=== PATIENT | female | born 1995 | race Caucasian/White ===

== ENCOUNTER → 2023-04-09 10:41 | Outpatient (CLI) | payer MEDICAID, SELFPAY ==
[2023-04-10 08:09] LABS: Progesterone 8.3 ng/mL (.)
== END ==
PROVIDERS: Visit Provider Obstetrics & Gynecology
DX: N92.6 Irregular menstruation, unspecified (principal); Z32.00 Encounter for pregnancy test, result unknown
CPT/HCPCS: 36415; 84144; 84702

== ENCOUNTER → 2023-05-01 14:57 | Outpatient (CLI) | payer MEDICAID, SELFPAY ==
[2023-05-01 15:31] LABS: Basophils % 0.2 % (0.1-2.0); Eosinophils # 0.2 K/mm3 (0.0-0.4); Eosinophils % 1.6 % (0.1-12.0); Hematocrit 41.3 % (37.0-47.0); Hemoglobin 13.7 g/dL (12.2-16.2); Lymphocytes # 3.3 K/mm3 (0.7-4.5); Lymphocytes % 28.1 % (10-50); Mean Corpuscular HGB Conc 33.3 g/dL (31.8-35.4); Mean Corpuscular Volume 84.3 fl (81-99); Mean Platelet Volume 7.3 fl (7.4-10.4); Monocytes # 0.5 K/mm3 (0.1-1.0); Neutrophils # 7.9 K/mm3 (1.8-7.8); Platelet Count 313 K/mm3 (142-424); Red Blood Count 4.91 M/mm3 (4.20-5.40); Red Cell Distribution Width 14.2 % (11.5-17.5); White Blood Count 11.9 K/mm3 (4.8-10.8)
[2023-05-03 10:51] LABS: HIV Screen 4th Generation wRfx Non Reactive (Non Reactive); Rapid Plasma Reagin Ab Titer Non Reactive (NonRea<1:1)
[2023-05-06 11:14] LABS: Hepatitis B Surface Antigen Negative; Hepatitis C Antibody Non Reactive
[2023-05-06 11:15] LABS: Rubella Antibodies, IgG <0.90
== END ==
PROVIDERS: Visit Provider Obstetrics & Gynecology
DX: Z34.91 Encounter for supervision of normal pregnancy, unspecified, first trimester (principal); Z3A.10 10 weeks gestation of pregnancy
CPT/HCPCS: 36415; 85025; 86593; 86703; 86762; 86850; 87086; 87088; 87186; 87340; 87380; G0432

== ENCOUNTER → 2023-05-07 08:45 | Outpatient (CLI) | payer MEDICAID, SELFPAY ==
--- NOTE | 2023-05-07 08:46 | US_ITS ---
PROCEDURE: US OB <= 14 WEEKS FETUS CLINICAL INDICATION: for dates COMPARISON: No exams were available for comparison FINDINGS: Transvaginal and transabdominal sonographic images of the pelvis were obtained. Her last menstrual period is unknown. An intrauterine gestational sac is present with a pole with a crown-rump length of 4.53cm correlating to gestational age of 11weeks 3days. heart tones are present with an FHR of 167bpm. Yolk sac is noted. The yolk sac measures 7.4mm. The right ovary is seen and appears normal. It measures 1.5 cm x 2.6 cm x 1.6 cm. The left ovary is seen and appears normal. It measures 1.8 cm x 2.7 cm x 1.9 cm. There is a corpus luteum within the ovary. There is no fluid in the cul-de-sac. IMPRESSION: 1. Within the uterine cavity there is a viable fetus measuring 11 weeks and 3 days. 2. Her due date will be November 23, 2023. 3. Both ovaries are seen and appear normal. There is a small corpus luteum on the left ovary. Dictated by: Kiran Crook MD 05/07/2023 14:07 Kiran Crook MD in OV 05/07/2023 14:07
== END | disposition home or self-care (01) ==
PROVIDERS: Visit Provider Obstetrics & Gynecology
DX: Z34.91 Encounter for supervision of normal pregnancy, unspecified, first trimester (principal); Z3A.11 11 weeks gestation of pregnancy
CPT/HCPCS: 76801

== ENCOUNTER 2023-05-11 13:46 | Observation (INO) | payer MEDICAID, SELFPAY ==
[2023-05-11 14:04] VITALS: BMI 41.8
[2023-05-11 14:10] VITALS: BP 113/57; PULSE 61; RESP 18; TEMP 37.1
[2023-05-11 14:45] VITALS: BMI 41.8
[2023-05-11 15:06] LABS: Microscopic, Urine URINE MICROSCOPIC (MICROSCOPIC)
[2023-05-11 16:33] LABS: Appearance,Urine Clear (Clear); Color,Urine Yellow (Yellow); Protein,Urine Negative (Negative)
[2023-05-11 16:34] LABS: Bacteria,Urine Trace /lpf; Bilirubin,Urine Negative (Negative); Blood, Urine Trace (Negative); Glucose,Urine (UA) Negative (Negative); Ketones,Urine Negative (Negative); Leukocyte Esterase,Urine Trace (Negative); Nitrate,Urine Negative (Negative); RBC,Urine Occasional #/hpf (0-3); Squamous Epithelial Cell,Urine Occasional #/hpf (0-5); WBC,Urine Occasional #/hpf (0-3)
[2023-05-11 16:43] LABS: Amphetamine/Metha Screen,Urine Negative ng/ml (<1000)
[2023-05-11 16:45] LABS: Barbiturates Screen,Urine Negative ng/ml (<200)
[2023-05-11 16:46] LABS: Benzodiazepines Screen,Urine Negative ng/ml (<200); Cannabinoid Screen,Urine Positive ng/ml (<50)
[2023-05-11 16:47] LABS: Cocaine Screen,Urine Negative ng/ml (<300); Methadone Screen,Urine Negative ng/ml (<300)
[2023-05-11 16:48] LABS: Opiate Screen,Urine Positive ng/ml (<300)
[2023-05-11 16:49] LABS: Phencyclidine Screen,Urine Negative ng/ml (<25)
--- NOTE | 2023-05-11 19:24 | PC.NURSE ---
Report given to NINO Irvin (float nurse).
--- NOTE | 2023-05-11 19:48 | EXP.OB.APHP ---
OB - H&P: HPI Antepartum History of Present Illness Chief complaint: back pain History of present illness: Amada Brizuela is a 27-year-old G3, P2 who presented to an outside facility with back pain. She was found to have pyelonephritis and I was called to accept transfer. Patient is 12 weeks and 1 day gestation based on an RACHEL of November 23, 2023. RACHEL was established with 10-week ultrasound. At her new OB appointment on 05/01/2023 she was noted to have a urinary tract infection and Macrobid was called in. Culture and sensitivity grew out greater than 100,000 colony-forming units of E. coli that was sensitive to Macrobid. On arrival to outside facility she received 1 dose of Rocephin, earlier UTI cultures indicated Rocephin sensitive. On arrival patient had persistent left-sided abdominal pain with nausea vomiting and diarrhea for about 12 hours review of labs from outside facility noted an appreciable leukocytosis. Labs are also positive for hematuria and proteinuria. Patient denies any contractions or leakage of fluid. She denies any vaginal bleeding. Patient denies any fevers or chills. No known drug allergies O+/antibody negative, RPR NR, HPV negative, HCV negative, HIV negative, rubella nonimmune OB history: Denies any complications with her pregnancies. G1: 2019. Elective . G2: 2020. Repeat scheduled . History of Present Criteria for establishing EDC:: LMP confirmed by 1st trimester US care: good care Ultrasounds: normal 1st trimester US Labs Blood type: O (+) positive Rubella: nonimmune RPR/VDRL: nonreactive GBS status: unknown HBsAG: negative [facility] Disclaimer: The information contained in this section may have been updated after the patient was seen, as this information can be updated by other users. Surgical History History of section Family History Mother Cancer Grandmother Cancer Social History (Updated 05/11/23 @ 14:29 by Ayleen Owusu RN) Smoking Status: Current every day smoker tobacco type: cigarettes years smoked: 15 alcohol intake: former substance use type: denies use and marijuana current occupational status: unemployed Travel in the last 8 weeks: None Meds Home Medications and Allergies Home Medications Medication Instructions Recorded Confirmed Type doxylamine succinate 25 mg tablet 25 mg PO HS PRN nausea #60 tabs 05/01/23 05/11/23 Rx (Unisom (doxylamine)) omeprazole 20 mg capsule,delayed 20 mg PO DAILY Acid Reflux 05/01/23 05/11/23 History release pyridoxine (vitamin B6) 25 mg 25 mg PO BID nausea and vomiting 05/01/23 05/11/23 Rx tablet #120 tabs progesterone micronized 200 mg 200 mg vaginal HS 05/11/23 05/11/23 History capsule (Prometrium) New Prescriptions to Start Prescriptions: Allergies Allergy/AdvReac Type Severity Reaction Status Date / Time No Known Allergies Allergy Verified 05/01/23 13:49 OB - H&P: Exam Physical Exam Vital signs: Temp Pulse Resp BP 98.7 F 61 18 113/57 L 05/11/23 14:10 05/11/23 14:10 05/11/23 14:10 05/11/23 14:10 Narrative: General: patient is alert oriented in no acute distress and responds appropriately to questions. Appears to be in minimal pain. resting in bed and doing well HEENT: NCAT, EOMI, moist mucous membranes, neck supple with full ROM Cardiovascular: RRR +S1/S2, no murmurs or rubs Pulmonary: Clear to auscultation bilaterally, nonlabored breathing, symmetric chest rise Abdominal: Fundus appropriate for gestation. non tender Back: positive bilateral CVAT Extremities: no edema, no tenderness or cyanosis noted Skin: Normal turgor, intact, warm.? Negative for erythema, pallor, petechia, or lesions Neurologic: Negative for sensory or motor deficit Psychiatric: Normal affect, normal thought process, good judgme
[2023-05-11 20:00] VITALS: BP 113/66; PULSE 58; RESP 18; TEMP 37; O2SAT 98
[2023-05-12 04:00] VITALS: BP 123/72; PULSE 78; RESP 16; TEMP 37; O2SAT 98
--- NOTE | 2023-05-12 07:29 | INFXCTL.NOTE ---
Report received from NINO Irvin (float nurse)
[2023-05-12 08:39] LABS: Basophils # 0.1 K/mm3 (0-0.2); Basophils % 0.5 % (0.1-2.0); Eosinophils # 0.2 K/mm3 (0.0-0.4); Eosinophils % 1.5 % (0.1-12.0); Hematocrit 38.6 % (37.0-47.0); Hemoglobin 12.7 g/dL (12.2-16.2); Lymphocytes # 3.5 K/mm3 (0.7-4.5); Lymphocytes % 33.5 % (10-50); Mean Corpuscular HGB Conc 32.9 g/dL (31.8-35.4); Mean Corpuscular Volume 85.3 fl (81-99); Monocytes # 0.5 K/mm3 (0.1-1.0); Monocytes % 4.5 % (1.7-9.3); Neutrophils # 6.2 K/mm3 (1.8-7.8); Platelet Count 298 K/mm3 (142-424); Red Blood Count 4.52 M/mm3 (4.20-5.40); Red Cell Distribution Width 14.1 % (11.5-17.5); White Blood Count 10.4 K/mm3 (4.8-10.8)
[2023-05-12 09:00] VITALS: BP 131/75; PULSE 77; RESP 18; TEMP 37.2
--- NOTE | 2023-05-12 14:33 | PC.NURSE ---
Sleeping soundly at this time.
[2023-05-12 16:30] VITALS: BP 121/73; PULSE 58; RESP 17; TEMP 36.9; O2SAT 100
--- NOTE | 2023-05-12 16:47 | EXP.DC.SUM ---
General Admission date:: 05/11/23 HPI HPI HPI: Amada Brizuela is a 27-year-old G3, P2 who presented to an outside facility with back pain. She was found to have pyelonephritis and I was called to accept transfer. Patient is 12 weeks and 1 day gestation based on an RACHEL of November 23, 2023. RACHEL was established with 10-week ultrasound. At her new OB appointment on 05/01/2023 she was noted to have a urinary tract infection and Macrobid was called in. Culture and sensitivity grew out greater than 100,000 colony-forming units of E. coli that was sensitive to Macrobid. On arrival to outside facility she received 1 dose of Rocephin, earlier UTI cultures indicated Rocephin sensitive. On arrival patient had persistent left-sided abdominal pain with nausea vomiting and diarrhea for about 12 hours review of labs from outside facility noted an appreciable leukocytosis. Labs are also positive for hematuria and proteinuria. Patient denies any contractions or leakage of fluid. She denies any vaginal bleeding. Patient denies any fevers or chills. No known drug allergies O+/antibody negative, RPR NR, HPV negative, HCV negative, HIV negative, rubella nonimmune OB history: Denies any complications with her pregnancies. G1: 2018. Elective . G2: 2020. Repeat scheduled . Hospital Course Hospital Course Hospital Course: Amada is a at 11 weeks gestation that was admitted from outside facility for pyelonephritis. She was being treated for a symptomatic UTI with Macrobid following her initial OB appt. Pt reports it progressed over the course of 12 hours and she presented to the ED. She received two doses of Rocephin and felt significantly better. She was requesting DC home last night but was kept for observation and her second course of Rocephin. She had a leukocytosis at outside facility that has resolved at time of DC. All questions were addressed. Pt will DC on Cephlexin BID x7days and then start on daily suppression for the remainder of . Exam Data for Last 24 hours Vital signs and Labs for Last 24 Hours: Temp Pulse Resp BP Pulse Ox O2 Del Method 98.9 F 77 18 131/75 98 Room Air 05/12/23 09:00 05/12/23 09:00 05/12/23 09:00 05/12/23 09:00 05/12/23 04:00 05/12/23 04:00 Laboratory Results - last 24 hr 05/11/23 14:00: Urine Opiates Screen Positive H, Urine Methadone Screen Negative, Ur Barbituates Screen Negative, Ur Phencyclidine Scrn Negative, Ur Amphetamines Screen Negative, U Benzodiazepines Scrn Negative, Urine Cocaine Screen Negative, U Marijuana (THC) Screen Positive H 05/12/23 08:18: WBC 10.4, RBC 4.52, Hgb 12.7, Hct 38.6, MCV 85.3, MCH 28.0, MCHC 32.9, RDW 14.1, Plt Count 298, MPV 7.0 L, Neut % (Auto) 60.0, Lymph % (Auto) 33.5, [place] % (Auto) 4.5, Eos % (Auto) 1.5, Baso % (Auto) 0.5, Neut # (Auto) 6.2, Lymph # (Auto) 3.5, [place] # (Auto) 0.5, Eos # (Auto) 0.2, Baso # (Auto) 0.1 I & O for Last 24 hours: Intake & Output 05/09/23 05/10/23 05/11/23 05/12/23 23:59 23:59 23:59 23:59 Weight 214 lb Constitutional Constitutional: no acute distress *Routine HEENT Exam Head: Present normocephalic Eye: Present EOMI and PERRL ENT: Present mucous membranes moist *Routine Neck Exam Neck: Present supple; Absent lymphadenopathy *Routine Respiratory Exam Respiratory: Present CTA bilaterally *Routine Cardiovascular Exam Cardiovascular: Present RRR *Routine Abdominal Exam Abdominal: Present soft and normoactive bowel sounds; Absent tenderness *Routine Exam Comments: suprapubic pain/ pelvic pain resolved since admission *Routine Extremities Exam Extremities: Absent cyanosis, clubbing or edema Routine Back/Spine/Pelvis Exam Back/Spine: Absent CVA tenderness (resolved since admission ) *Routine Skin Exam Skin: Present warm; Absent rash *Routine Neurological Exam Neurological: Present alert and oriented X3 Results Data Completed and Pending Labs on day of discharge: Labs from last 24 hours
== END 2023-05-12 18:30 | disposition home or self-care (01) ==
PROVIDERS: Admitting Provider Obstetrics & Gynecology; Visit Provider Obstetrics & Gynecology
DX: O23.01 Infections of kidney in pregnancy, first trimester (principal); B96.20 Unspecified Escherichia coli [E. coli] as the cause of diseases classified elsewhere; Z3A.12 12 weeks gestation of pregnancy; O99.331 Smoking (tobacco) complicating pregnancy, first trimester; F17.210 Nicotine dependence, cigarettes, uncomplicated; O26.891 Other specified pregnancy related conditions, first trimester; K21.9 Gastro-esophageal reflux disease without esophagitis
CPT/HCPCS: 36415; 80305; 81001; 85025; 87040; 87086; G0378; J0696

== ENCOUNTER → 2023-05-30 23:17 | Outpatient (CLI) | payer MEDICAID, SELFPAY | LOC: LAB.DROPOF 23:17 | PROVIDERS: PCP Obstetrics & Gynecology; Visit Provider Obstetrics & Gynecology | DX: N12 Tubulo-interstitial nephritis, not specified as acute or chronic (principal); B96.29 Other Escherichia coli [E. coli] as the cause of diseases classified elsewhere | CPT/HCPCS: 87086; 87088; 87186 ==

== ENCOUNTER 2023-06-19 23:40 | Observation (INO) | payer MEDICAID, SELFPAY ==
[2023-06-19 23:43] VITALS: BP 141/83; PULSE 113; RESP 16; TEMP 36.8; O2SAT 96; BMI 42.0
[2023-06-20] VITALS (7 sets, daily range): BP systolic 101–136; BP diastolic 55–76; PULSE 71–108; RESP 16–18; TEMP 36.7–37.1; O2SAT 95–99; BMI 42.0
[2023-06-20 00:07] LABS: Coronavirus 19, PCR Not Detected (NotDetected); Influenza A, PCR Not Detected (NotDetected); Influenza B, PCR Not Detected (NotDetected); Microscopic, Urine URINE MICROSCOPIC (MICROSCOPIC)
[2023-06-20 00:16] LABS: Appearance,Urine CLEAR (Clear); Blood, Urine TRACE-I (Negative); Color,Urine YELLOW (Yellow); Glucose,Urine (UA) Negative (Negative); Ketones,Urine Negative (Negative); Leukocyte Esterase,Urine 1+ (Negative); Nitrate,Urine Negative (Negative); Protein,Urine 1+ (Negative); Specific Gravity, Urine 1.015 (1.005-1.030)
[2023-06-20 00:18] LABS: Bilirubin,Urine Negative (Negative)
[2023-06-20 00:33] LABS: Basophils % 0.3 % (0.1-2.0); Eosinophils # 0.2 K/mm3 (0.0-0.4); Eosinophils % 1.6 % (0.1-12.0); Hematocrit 29.8 % (37.0-47.0); Hemoglobin 10.5 g/dL (12.2-16.2); Lymphocytes # 2.2 K/mm3 (0.7-4.5); Lymphocytes % 23.3 % (10-50); Mean Corpuscular HGB Conc 35.4 g/dL (31.8-35.4); Mean Corpuscular Hemoglobin 29.4 pg (27.0-31.2); Mean Corpuscular Volume 82.9 fl (81-99); Mean Platelet Volume 7.6 fl (7.4-10.4); Monocytes # 0.5 K/mm3 (0.1-1.0); Monocytes % 5.4 % (1.7-9.3); Neutrophils # 6.4 K/mm3 (1.8-7.8); Neutrophils % 69.5 % (37.0-80.0); Platelet Count 393 K/mm3 (142-424); Red Blood Count 3.59 M/mm3 (4.20-5.40); Red Cell Distribution Width 13.9 % (11.5-17.5); White Blood Count 9.2 K/mm3 (4.8-10.8)
[2023-06-20 00:34] LABS: HCG Qualitative, Serum Positive (Negative); Lactic Acid 1.5 mmol/L (0.7-2.1)
[2023-06-20 00:35] LABS: Alanine Aminotransferase 20 U/L (12-78); Albumin Level 2.9 g/dl (3.5-5.0); Albumin/Globulin Ratio 0.7 (1.1-1.8); Alkaline Phosphatase 310 U/L (38-126); Anion Gap 13.9 mEq/L (5-15); Aspartate Amino Transferase 21 U/L (14-36); Bilirubin,Total 0.8 mg/dl (0.2-1.3); Blood Urea Nitrogen 8 mg/dl (7-17); Calcium 8.6 mg/dl (8.4-10.2); Carbon Dioxide 21 mmol/L (22.0-30.0); Chloride 104 mmol/L (98-107); Creatinine Clearance Estimated 77 mL/min (50-200); Estimated Glomerular Filt Rate 87 ml/min (>60); GFR (African American) 106 ML/MIN (>60); Globulin 3.9 g/dL (1.3-3.2); Glucose 101 mg/dl (74-100); Magnesium 1.6 mg/dl (1.6-2.3); Sodium 136 mmol/L (136-145); Total Protein,Serum 6.8 g/dl (6.3-8.2)
[2023-06-20 00:42] LABS: Bacteria,Urine 1+ /lpf; WBC,Urine 20-50 #/hpf (0-3)
[2023-06-20 00:44] LABS: Potassium 2.9 mmoL/L (3.5-5.1)
--- NOTE | 2023-06-20 00:44 | PC.NURSE ---
reported critical potassium of 2.[address] Larsen
--- NOTE | 2023-06-20 01:11 | HMH.EDGENADL ---
Discharge Plan Disposition Patient Disposition: Admitted Clinical Impressions Clinical Impression: Bacteremia, Pyelonephritis, 17 weeks gestation of , Acute hypokalemia Sepsis Qualifiers: Sepsis type: sepsis due to unspecified organism Sepsis acute organ dysfunction status: without acute organ dysfunction Qualified Code(s): A41.9 - Sepsis, unspecified organism Discharge ED Provider: Truong Larsen General Adult HPI General Chief complaint: Fever Stated complaint: vomiting,body aches,runny nose,sweats,chills Time Seen by Provider: 06/19/23 23:45 Mode of Arrival: Ambulatory Source of Information: Patient Limitations: No Limitations Description of Symptoms (Recalled from ER Triage Doc. by RN): Body aches, fever, SOA History of Present Illness HPI narrative: 27-year-old female, 17 weeks , history of obesity, PCOS, history of pyelonephritis last month presents with multiple complaints. She reports that starting or Sunday of last week she began having generalized body aches and fevers, reportedly felt terrible. She was seen at another hospital on Sunday, [facility], where she had blood work and urine studies done. She brought her results with her, they are very concerning for pyelonephritis. She was given a dose of tract stone and elected to leave AMA. She presents approximately 48 hours later. She reports her last fever was yesterday morning and she is no longer symptomatic. Specifically denies any back pain or abdominal pain. Related Data Home Medications Medication Instructions Recorded Confirmed omeprazole 20 mg capsule,delayed 20 mg PO DAILY Acid Reflux 05/01/23 06/19/23 release aspirin 81 mg capsule 81 mg PO DAILY 06/19/23 06/19/23 Allergies Allergy/AdvReac Type Severity Reaction Status Date / Time No Known Allergies Allergy Verified 05/30/23 10:20 [facility] Disclaimer: The information contained in this section may have been updated after the patient was seen, as this information can be updated by other users. Medical History Irregular bleeding PCOS (polycystic ovarian syndrome) Surgical History History of section Family History Mother Cancer breast, bone, brain Grandmother Cancer brain Social History Smoking Status: Current every day smoker tobacco type: cigarettes years smoked: 15 alcohol intake: former substance use type: denies use and marijuana current occupational status: unemployed Travel in the last 8 weeks: None ROS Obtained: Yes All systems reviewed & no additional complaints except as documented Physical Exam General General appearance: alert, in no apparent distress and obese Head Head exam: atraumatic and normocephalic Eye Eye exam: Present normal appearance, PERRL and EOMI ENT ENT exam: Present normal oropharynx and normal external ear exam Neck Neck exam: Present normal inspection and full ROM Chest Chest inspection: Present normal inspection and symmetric chest wall rise; Absent tenderness Respiratory Respiratory exam: Present normal lung sounds bilaterally; Absent respiratory distress Cardiovascular Cardiovascular exam: Present regular rate and normal rhythm Abdominal Exam Abdominal exam: Present soft; Absent distention, tenderness or guarding Extremities Exam Extremities exam: Present normal inspection; Absent edema or joint swelling Back Exam Back exam: Present normal inspection; Absent tenderness Neurological Exam Neurological exam: Present alert and oriented X3; Absent motor sensory deficit Psychiatric Psychiatric exam: Present normal affect and normal mood Skin Skin exam: Present warm, dry and normal color Lymphatic Lymphatic Findings: no adenopathy Medical Decision Making
--- NOTE | 2023-06-20 01:36 | PC.NURSE ---
report called to NATALYA Kowalski RN
--- NOTE | 2023-06-20 02:05 | EXP.HP ---
History of Present Illness *Admission Date: 06/20/23 *Reason for visit:: Pyelonephritis and bactermia *History of present illness: Amada Brizuela is a 27-year-old G3, P2 at 17w5d gestation who presented to the ED with a UTI . She was evaluated at an outside facility and per pt diagnosed with a UTI, given antibiotics and then signed out AMA with plans to come to [facility] for OB care. On arrival the patient was afebrile and denies back pain. Pt stated yesterday the back pain was more significant on the left and her fever was persistent. She is having some SOA and endorses nausea and vomitting for several days, most recent emesis today prior to ED arrival. This is her second admission for pyelonephritis. Review of labs from OSH displayed a leukocytosis and a bacteremia, sensitive to Rocephin. Patient denies any contractions or leakage of fluid. She denies any vaginal bleeding. No known drug allergies O+/antibody negative, RPR NR, HPV negative, HCV negative, HIV negative, rubella nonimmune [facility] Disclaimer: The information contained in this section may have been updated after the patient was seen, as this information can be updated by other users. Medical History Irregular bleeding PCOS (polycystic ovarian syndrome) Surgical History History of section Family History Mother Cancer breast, bone, brain Grandmother Cancer brain Social History Smoking Status: Current every day smoker tobacco type: cigarettes years smoked: 15 alcohol intake: former substance use type: denies use and marijuana current occupational status: unemployed Travel in the last 8 weeks: None Review of Systems Review of Systems Review of systems (narrative): Review of Systems Constitutional: endorses fever, chills, and sweats Eyes: Denies vision change/ pain Respiratory: endorses cough and shortness of breath Cardiovascular: Denies chest pain and lightheadedness Gastrointestinal: denies abdominal pain or contractions. endorses nausea, vomiting. Genitourinary: endorses dysuria, urgency and frequency. Denies incontinence Musculoskeletal: Denies shoulder pain and reports improving back pain Neurological: Denies change in speech or headaches Meds Home Medications and Allergies Home Medications Medication Instructions Recorded Confirmed Type omeprazole 20 mg capsule,delayed 20 mg PO DAILY Acid Reflux 05/01/23 06/19/23 History release aspirin 81 mg capsule 81 mg PO DAILY 06/19/23 06/19/23 History New Prescriptions to Start Prescriptions: Allergies Allergy/AdvReac Type Severity Reaction Status Date / Time No Known Allergies Allergy Verified 05/30/23 10:20 Exam Data for Last 24 hours Vital signs and Labs for Last 24 Hours: Temp Pulse Resp BP Pulse Ox O2 Del Method 98.1 F 86 18 101/56 L 99 Room Air 06/20/23 01:42 06/20/23 01:42 06/20/23 01:42 06/20/23 01:42 06/20/23 01:23 06/20/23 01:42 Laboratory Results - last 24 hr 06/20/23 00:00: Urine Color Yellow, Urine Appearance Clear, Urine pH 7.0, Ur Specific Home 1.015, Urine Protein 1+, Urine Glucose (UA) Negative, Urine Ketones Negative, Urine Blood Trace-i, Urine Nitrate Negative, Urine Bilirubin Negative, Urine Urobilinogen 2.0, Ur Leukocyte Esterase 1+ A, Urine RBC 3-5, Urine WBC 20-50, Ur Squamous Epith Cells 10-20, Urine Bacteria 1+, SARS-CoV-2 (PCR) Not detected, Influenza A Untype (PCR) Not detected, Influenza Type B (PCR) Not detected 06/20/23 00:15: WBC 9.2, RBC 3.59 L, Hgb 10.5 L, Hct 29.8 L, MCV 82.9, MCH 29.4, MCHC 35.4, RDW 13.9, Plt Count 393, MPV 7.6, Neut % (Auto) 69.5, Lymph % (Auto) 23.3, [place] % (Auto) 5.4, Eos % (Auto) 1.6, Baso % (Auto) 0.3, Neut # (Auto) 6.4, Lymph # (Auto) 2.2, [place] # (Auto) 0.5, Eos
[2023-06-20 06:33] LABS: Basophils % 0.2 % (0.1-2.0); Eosinophils # 0.2 K/mm3 (0.0-0.4); Hemoglobin 10.5 g/dL (12.2-16.2); Lymphocytes # 2.4 K/mm3 (0.7-4.5); Lymphocytes % 29.1 % (10-50); Mean Corpuscular HGB Conc 35.1 g/dL (31.8-35.4); Mean Corpuscular Hemoglobin 29.8 pg (27.0-31.2); Mean Corpuscular Volume 84.9 fl (81-99); Mean Platelet Volume 7.5 fl (7.4-10.4); Monocytes # 0.6 K/mm3 (0.1-1.0); Monocytes % 7.1 % (1.7-9.3); Neutrophils # 5.1 K/mm3 (1.8-7.8); Neutrophils % 61.6 % (37.0-80.0); Platelet Count 358 K/mm3 (142-424); Red Blood Count 3.53 M/mm3 (4.20-5.40); Red Cell Distribution Width 14.1 % (11.5-17.5); White Blood Count 8.4 K/mm3 (4.8-10.8)
[2023-06-20 06:35] LABS: Chloride 107 mmol/L (98-107); Potassium 3.9 mmoL/L (3.5-5.1); Sodium 135 mmol/L (136-145)
[2023-06-20 06:38] LABS: Alanine Aminotransferase 14 U/L (12-78); Albumin Level 2.6 g/dl (3.5-5.0); Albumin/Globulin Ratio 0.7 (1.1-1.8); Alkaline Phosphatase 359 U/L (38-126); Anion Gap 11.9 mEq/L (5-15); Aspartate Amino Transferase 21 U/L (14-36); Bilirubin,Total 0.8 mg/dl (0.2-1.3); Blood Urea Nitrogen 8 mg/dl (7-17); Calcium 8.3 mg/dl (8.4-10.2); Carbon Dioxide 20 mmol/L (22.0-30.0); Creatinine Clearance Estimated 88 mL/min (50-200); Estimated Glomerular Filt Rate 102 ml/min (>60); GFR (African American) 123 ML/MIN (>60); Globulin 3.5 g/dL (1.3-3.2); Glucose 81 mg/dl (74-100); Total Protein,Serum 6.1 g/dl (6.3-8.2)
--- NOTE | 2023-06-20 07:18 | US_ITS ---
FINAL REPORT TECHNIQUE: Ultrasound images of the kidneys and bladder were obtained. CLINICAL HISTORY: recurrent Pyelonephritis -- pt is COMPARISON: None FINDINGS: The right kidney measures 11.4 cm in length. It is normal in echogenicity. There is no hydronephrosis. The left kidney measures 14 cm in length, significantly larger than the right kidney. This is nonspecific, but can be seen with pyelonephritis. There is no hydronephrosis. The pancreas is poorly visualized on this examination. There is increased echogenicity in the liver compatible with fatty infiltration of the liver. IMPRESSION: The left kidney is significantly larger than the right kidney, a nonspecific finding but can be seen with pyelonephritis. No evidence of hydronephrosis is seen. Fatty infiltration of the liver. Reviewed, Interpreted and Dictated by Isaak Banuelos III, MD Transcribed by Agnieszka Sims Authenticated and [facility]
[2023-06-20 07:21] LABS: Magnesium 2.1 mg/dl (1.6-2.3)
--- NOTE | 2023-06-20 07:43 | HMH.PHAINT1 ---
Pharmacy Intervention Comments: MEDICATION RECONCILIATION COMPLETED ON PATIENT USING EXTERNAL FILL HISTORY FROM PHARMACY AND LIST FROM [facility]ICE. -JOSE MIGUEL OLIVERD
--- NOTE | 2023-06-20 07:43 | P.CONPHA_ITS ---
Pharmacy Intervention Comments: MEDICATION RECONCILIATION COMPLETED ON PATIENT USING EXTERNAL FILL HISTORY FROM PHARMACY AND LIST FROM [facility] OFFICE. -JOSE MIGUEL OLIVERD
--- NOTE | 2023-06-20 09:08 | EXP.DC.SUM ---
General Admission date:: 06/20/23 Discharge date: 06/20/23 HPI HPI HPI: Amada is sitting comfortably in bed this morning. Denies pain. States she hasn't had a fever since 06/17/23. She is voiding without difficulty. States she had one episode of emesis yesterday. Tolerating regular diet. No vaginal bleeding or pelvic cramping. She has no complaints or concerns this morning. She states she feels well. Hospital Course Hospital Course Hospital Course: Amada Brizuela is a 27-year-old G3, P2 at 17w5d gestation who presented to the ED with a UTI . She was evaluated at an outside facility on 06/17 and per pt diagnosed with a UTI, given antibiotics and then signed out AMA with plans to come to [facility] for OB care. On arrival the patient was afebrile and denies back pain. Pt stated yesterday the back pain was more significant on the left and her fever was persistent. She is having some SOA and endorses nausea and vomitting for several days, most recent emesis today prior to ED arrival. This is her second admission for pyelonephritis. Review of labs from OSH displayed a leukocytosis and a bacteremia (prelimary result demonstrated gram negative figueroa), sensitive to Rocephin. Patient denies any contractions or leakage of fluid. She denies any vaginal bleeding. No known drug allergies O+/antibody negative, RPR NR, HPV negative, HCV negative, HIV negative, rubella nonimmune Upon admission, leukocytosis had resolved. WBC at 0518, 8.4. Repeat labs all within normal limits. Vital signs stable, afebrile. Final blood culture results from OSH demonstrated E. Coli, sensitivities received. She feels well this morning. No complaints or concerns. Renal ultrasound performed this morning demonstrated left kidney significantly larger than the right kidney, a nonspecific finding but can be seen with pyelonephritis. No evidence of hydronephrosis is seen. Fatty infiltration of the liver. She was discharged home with Augmentin PO x 10 days. Encouraged increased water intake. Instructed patient to follow-up with Dr. Shipley early next week. Exam Data for Last 24 hours Vital signs and Labs for Last 24 Hours: Temp Pulse Resp BP Pulse Ox O2 Del Method 98.7 F 83 17 107/62 L 97 Room Air 06/20/23 02:45 06/20/23 02:45 06/20/23 02:45 06/20/23 02:45 06/20/23 02:45 06/20/23 02:45 Laboratory Results - last 24 hr 06/20/23 00:00: Urine Color Yellow, Urine Appearance Clear, Urine pH 7.0, Ur Specific [place] 1.015, Urine Protein 1+, Urine Glucose (UA) Negative, Urine Ketones Negative, Urine Blood Trace-i, Urine Nitrate Negative, Urine Bilirubin Negative, Urine Urobilinogen 2.0, Ur Leukocyte Esterase 1+ A, Urine RBC 3-5, Urine WBC 20-50, Ur Squamous Epith Cells 10-20, Urine Bacteria 1+, SARS-CoV-2 (PCR) Not detected, Influenza A Untype (PCR) Not detected, Influenza Type B (PCR) Not detected 06/20/23 00:15: WBC 9.2, RBC 3.59 L, Hgb 10.5 L, Hct 29.8 L, MCV 82.9, MCH 29.4, MCHC 35.4, RDW 13.9, Plt Count 393, MPV 7.6, Neut % (Auto) 69.5, Lymph % (Auto) 23.3, [place] % (Auto) 5.4, Eos % (Auto) 1.6, Baso % (Auto) 0.3, Neut # (Auto) 6.4, Lymph # (Auto) 2.2, [place] # (Auto) 0.5, Eos # (Auto) 0.2, Baso # (Auto) 0.0, Sodium 136, Potassium 2.9 L*, Chloride 104, Carbon Dioxide 21 L, Anion Gap 13.9, BUN 8, Creatinine 0.80, Estimated Creat Clear 77, Estimated GFR 87, Est GFR ( Amer) 106, Glucose 101 H, Lactate 1.5, Calcium 8.6, Magnesium 1.6, Total Bilirubin 0.8, AST 21, ALT 20, Alkaline Phosphatase 310 H, Total Protein 6.8, Albumin 2.9 L, Globulin 3.9 H, Albumin/Globulin Ratio 0.7 L, Serum HCG, Qual Positive 06/20/23 05:18: WBC 8.4, RBC 3.53 L, Hgb 10.5 L, Hct 30.0 L, MCV 84.9, MCH 29.8, MCHC 35.1, RDW 14.1, Plt Count 358, MPV 7.5, Neut % (Auto) 61.6, Lymph % (Auto) 29.1, [place] % (Auto) 7.1, Eos % (Auto) 2.0, Baso % (Auto) 0.2, Neut # (Auto) 5.1, Lymph # (Auto) 2.4, [place] # (Auto) 0.6, Eos # (Auto) 0.2, Baso # (Auto) 0.0, Sodium 135 L, Potassium 3.9 D, Chloride 107, Carbon Dioxide 20 L, Anion Ga
--- NOTE | 2023-06-27 11:18 | PC.NURSE ---
notified dr. benito of blood culture result on worklist. Pt d/c on augmentin. Dr. Benito reviewed pts chart states no further action needed.
== END 2023-06-20 12:55 | disposition home or self-care (01) ==
LOC: ER 06-20 01:28 → OB 06-20 01:48
PROVIDERS: Admitting Provider Obstetrics & Gynecology; Emergency Provider Emergency Medicine; Visit Provider Obstetrics & Gynecology
DX: O23.02 Infections of kidney in pregnancy, second trimester (principal); Z3A.17 17 weeks gestation of pregnancy; O98.812 Other maternal infectious and parasitic diseases complicating pregnancy, second trimester; O99.332 Smoking (tobacco) complicating pregnancy, second trimester; A41.9 Sepsis, unspecified organism; O99.212 Obesity complicating pregnancy, second trimester
CPT/HCPCS: 36415; 76770; 80053; 81001; 83605; 83735; 84703; 85025; 87040; 87086; 87636; G0378; J0696; J3475

== ENCOUNTER → 2023-07-12 09:59 | Outpatient (CLI) | payer MEDICAID, SELFPAY ==
--- NOTE | 2023-07-12 09:59 | US_ITS ---
PROCEDURE: US OB /MATERNAL DETAIL CLINICAL INDICATION: 20 week anatomy scan COMPARISON: US US OB <= 14 WEEKS FETUS from 05/07/2023 FINDINGS: Transabdominal sonographic images of the pelvis were obtained. From her established due date she is 20 weeks 6 days.. Single viable intrauterine gestation. Breech position. Placenta: Fundalplacenta grade 1. There is an average amount of fluid. The cervix appears satisfactory. Closed and measuring 2.8 cm in length. Complete survey performed and was unremarkable on the submitted images as in PACS. No discrete anomalies identified on survey imaging by technologist. Active fetus. Three-vessel cord with satisfactory umbilical cord insertion. 4- chamber heart noted. Situs, LVOT, RVOT, three-vessel view, aortic arch appear normal. Survey of brain & ventricles Unremarkable. Choroid plexus, cisterna magna, cerebellum, thalamus, appear normal. Face and neck survey unremarkable. Profile, nasion, lips and nose appeared normal. Diaphragm and chest views unremarkable. Abdomen: Both kidneys noted and unremarkable. Stomach and bladder noted and satisfactory. Spine: Survey of the spine satisfactory with no anomalies identified nor imaged. Cervical, thoracic and lower spine appear normal. Both arms and legs noted. Amniotic Fluid: Adequate. MVP 4.4 cm. Measurements: Average ultrasound age 20weeks 4days. Estimated due date by ultrasound age 0311/25/2023. Estimated weight 341g BPD = 21weeks 3days HC = 20weeks 3days AC = 20weeks 3days FL = 20weeks Growth Percentile= 17 Heart Rate = 143bpm Cerebellum = 20weeks 1day Humerus = 20weeks 6days HC/AC is 1.18 FL/BPD is 0.63 FL/AC is 0.21 IMPRESSION: 1. Viable fetus in the breech presentation with a fundal placenta grade 1. 2. The fluid is within normal limits. 3. Anatomical scan appears normal. 4. biometry is consistent with the dates. Dictated by: Kiran Crook MD 07/12/2023 15:50 Kiran Crook MD in [facility] 07/12/2023 15:50
== END ==
PROVIDERS: PCP Obstetrics & Gynecology; Visit Provider Obstetrics & Gynecology
DX: Z34.92 Encounter for supervision of normal pregnancy, unspecified, second trimester (principal); Z3A.20 20 weeks gestation of pregnancy
CPT/HCPCS: 76811

== ENCOUNTER 2023-09-12 08:58 | Outpatient (CLI) | payer MEDICAID, SELFPAY ==
[2023-09-12 09:18] LABS: Basophils # 0.1 K/mm3 (0-0.2); Basophils % 0.5 % (0.1-2.0); Eosinophils # 0.4 K/mm3 (0.0-0.4); Eosinophils % 2.7 % (0.1-12.0); Hematocrit 38.4 % (37.0-47.0); Hemoglobin 13.3 g/dL (12.2-16.2); Lymphocytes # 3.1 K/mm3 (0.7-4.5); Lymphocytes % 23.6 % (10-50); Mean Corpuscular HGB Conc 34.7 g/dL (31.8-35.4); Mean Corpuscular Hemoglobin 29.6 pg (27.0-31.2); Mean Corpuscular Volume 85.4 fl (81-99); Mean Platelet Volume 7.6 fl (7.4-10.4); Monocytes # 0.6 K/mm3 (0.1-1.0); Monocytes % 4.8 % (1.7-9.3); Neutrophils % 68.5 % (37.0-80.0); Platelet Count 416 K/mm3 (142-424); Red Blood Count 4.49 M/mm3 (4.20-5.40); Red Cell Distribution Width 14.9 % (11.5-17.5); White Blood Count 13.1 K/mm3 (4.8-10.8)
[2023-09-12 10:45] LABS: Glucose 1 Hour 91 mg/dL (74-100); Glucose,Fasting 91 mg/dl (74-100)
== END 2023-09-12 23:59 ==
LOC: LAB 09:00
PROVIDERS: Visit Provider Obstetrics & Gynecology
DX: Z34.93 Encounter for supervision of normal pregnancy, unspecified, third trimester (principal); Z3A.29 29 weeks gestation of pregnancy
CPT/HCPCS: 36415; 82951; 85025

== ENCOUNTER 2023-10-31 09:57 | Outpatient (CLI) | payer MEDICAID, SELFPAY ==
--- NOTE | 2023-10-31 10:01 | US_ITS ---
PROCEDURE: US OB FOLLOW UP CLINICAL INDICATION: SGA COMPARISON: US US OB /MATERNAL DETAIL from 07/12/2023 FINDINGS: Transabdominal sonographic images of the pelvis were obtained. The following parameters are obtained: From her established due date she is 36weeks 5days Viable fetus in the cephalic presentation with an anterior placenta with a lateral wrap grade 2-3. The cervix measures 3.24 cm. heart rate: 135bpm bpm. weight 2599 grams, 5 lb 12 oz. BPD: 34weeks 1day, 5 percentile HC: 35weeks 0 days, 3 percentile AC: 35weeks 4day, 27 percentile FL: 35weeks 0 days, 10 percentile HC/AC: 0.99 FL/BPD: 0.8 FL/AC: 0.22 Growth percentile: 16 Amniotic fluid index: 13.95cm, MVP 4.03 cm. SD ratio 2.77-2.90 No obvious anomalies evident. profile seen, stomach, bladder, kidneys, three-vessel cord, four chamber heart appear normal. IMPRESSION: 1. Viable fetus in the cephalic presentation an anterior placenta grade 2-3. There may be some bridging of the placental vessels which could indicate placenta accreta. 2. The fluid is within normal limits with an amniotic fluid index of 13.95 cm, MVP 4.3 cm. 3. Fetus is active. 4. SD ratio normal at 2.77-2.90. 5. There has been good interval growth with the fetus currently 16 percentile. BPP and head circumference are less than the 5th percentile. Dictated by: Kiran Crook MD 10/31/2023 17:15 Kiran Crook MD in [facility] 10/31/2023 17:15
== END 2023-10-31 23:59 ==
LOC: RAD 09:57
PROVIDERS: Visit Provider Obstetrics & Gynecology
DX: O36.5930 Maternal care for other known or suspected poor fetal growth, third trimester, not applicable or unspecified (principal); O99.333 Smoking (tobacco) complicating pregnancy, third trimester; Z3A.36 36 weeks gestation of pregnancy
CPT/HCPCS: 76816; 76820

== ENCOUNTER 2023-11-09 05:43 | Inpatient (IN) | payer MEDICAID, SELFPAY ==
[2023-11-09] VITALS (15 sets, daily range): BP systolic 107–127; BP diastolic 49–81; PULSE 57–89; RESP 16–18; TEMP 36.4–37.1; O2SAT 96–100; BMI 43.1
[2023-11-09 06:41] LABS: Microscopic, Urine URINE MICROSCOPIC (MICROSCOPIC)
[2023-11-09 06:43] LABS: Basophils # 0.2 K/mm3 (0-0.2); Basophils % 1.1 % (0.1-2.0); Eosinophils # 0.3 K/mm3 (0.0-0.4); Hematocrit 40.3 % (37.0-47.0); Hemoglobin 13.1 g/dL (12.2-16.2); Lymphocytes # 3.3 K/mm3 (0.7-4.5); Lymphocytes % 23.6 % (10-50); Mean Corpuscular HGB Conc 32.4 g/dL (31.8-35.4); Mean Corpuscular Hemoglobin 28.9 pg (27.0-31.2); Mean Corpuscular Volume 89.3 fl (81-99); Mean Platelet Volume 7.5 fl (7.4-10.4); Monocytes # 0.6 K/mm3 (0.1-1.0); Monocytes % 4.5 % (1.7-9.3); Neutrophils # 9.7 K/mm3 (1.8-7.8); Neutrophils % 68.9 % (37.0-80.0); Platelet Count 400 K/mm3 (142-424); Red Blood Count 4.51 M/mm3 (4.20-5.40); Red Cell Distribution Width 13.8 % (11.5-17.5); White Blood Count 14.1 K/mm3 (4.8-10.8)
[2023-11-09 06:53] LABS: Appearance,Urine CLEAR (Clear); Bilirubin,Urine Negative (Negative); Blood, Urine Negative (Negative); Color,Urine YELLOW (Yellow); Glucose,Urine (UA) Negative (Negative); Ketones,Urine Negative (Negative); Leukocyte Esterase,Urine 1+ (Negative); Nitrate,Urine Negative (Negative); PH,Urine 7.5 (5.0-8.5); Protein,Urine Negative (Negative); Urobilinogen,Urine 0.2 EU/dl (0.2)
[2023-11-09 06:54] LABS: Alanine Aminotransferase 16 U/L (12-78); Albumin Level 3.5 g/dl (3.5-5.0); Albumin/Globulin Ratio 0.9 (1.1-1.8); Alkaline Phosphatase 228 U/L (38-126); Anion Gap 11.2 mEq/L (5-15); Aspartate Amino Transferase 19 U/L (14-36); Bilirubin,Total 0.4 mg/dl (0.2-1.3); Blood Urea Nitrogen 5 mg/dl (7-17); Calcium 9.3 mg/dl (8.4-10.2); Carbon Dioxide 20 mmol/L (22.0-30.0); Chloride 108 mmol/L (98-107); Creatinine Clearance Estimated 124 mL/min (50-200); Estimated Glomerular Filt Rate 150 ml/min (>60); GFR (African American) 182 ML/MIN (>60); Globulin 3.7 g/dL (1.3-3.2); Glucose 86 mg/dl (74-100); Potassium 4.2 mmoL/L (3.5-5.1); Sodium 135 mmol/L (136-145); Total Protein,Serum 7.2 g/dl (6.3-8.2)
[2023-11-09 07:17] LABS: Bacteria,Urine 1+ /lpf
[2023-11-09 07:20] LABS: Squamous Epithelial Cell,Urine 20-50 #/hpf (0-5)
--- NOTE | 2023-11-09 07:53 | P.CONPHA_ITS ---
Pharmacy Intervention Comments: MEDICATION RECONCILIATION COMPLETED ON PATIENT USING EXTERNAL FILL HISTORY FROM PHARMACY AND LIST FROM AUTOMAT CAR ATTENDANT OFFICE. -JOSE MIGUEL OLIVERD
--- NOTE | 2023-11-09 07:53 | HMH.PHAINT1 ---
Pharmacy Intervention Comments: MEDICATION RECONCILIATION COMPLETED ON PATIENT USING EXTERNAL FILL HISTORY FROM PHARMACY AND LIST FROM SUPPORT TECHNICIAN OFFICE. -JOSE MIGUEL OLIVERD
[2023-11-09] MEDS: LACTATED RINGERS 1000ML 2,000 ML 999 ML IV (10:13)
[2023-11-09] MEDS: CEFAZOLIN SODIUM 2 GM in 0.9 % SODIUM CHLORIDE 100 ML IV (12:11)
--- NOTE | 2023-11-09 12:11 | P.HP_ITS ---
History of Present Illness *Admission Date: 11/09/23 *Reason for visit:: CS *History of present illness: Amada is a 27yo at 38w0d gestation based on LMP, confirmed with 11wk US. was complicated by IUGR, obesity, and pyelonephritis. On presentation patient endorsed good movement and denies any leakage of fluid or vaginal bleeding. OB scan at 36 weeks and 5 days gestation for SGA -Viable fetus in cephalic presentation with an anterior placenta that has a lateral wrap grade 2-3. BPD: 5th percentile, head circumference: 3rd percentile, AC: 27th percentile, femur length: 10th percentile. -CAMERON: 13.95 cm, MVP: 4.03 cm -Cervix is 3.24 cm -EFW: 2599 g, 5 pounds 12 ounces, 16th percentile O+, antibody negative, hepatitis B negative, hepatitis C negative, RPR negative, HIV negative Rubella non-immune 1 hour GTT: 91 PFSH PFSH Disclaimer: The information contained in this section may have been updated after the patient was seen, as this information can be updated by other users. Medical History Irregular bleeding PCOS (polycystic ovarian syndrome) Surgical History History of section Family History Mother Cancer breast, bone, brain Grandmother Cancer brain Social History Smoking Status: Current every day smoker tobacco type: cigarettes years smoked: 15 alcohol intake: former substance use type: denies use and marijuana current occupational status: unemployed Travel in the last 8 weeks: None Review of Systems Review of Systems Review of systems (narrative): Review of Systems Constitutional: Denies fever, chills, and sweats Eyes: Denies vision change/ pain Respiratory: Denies cough and shortness of breath Cardiovascular: Denies chest pain and lightheadedness Gastrointestinal: denies abdominal pain. Denies nausea, vomiting. Genitourinary: Denies dysuria and incontinence Musculoskeletal: Denies shoulder pain and back pain Neurological: Denies change in speech or headaches Meds Home Medications and Allergies Home Medications Medication Instructions Recorded Confirmed Type omeprazole 20 mg capsule,delayed 20 mg PO DAILY Acid Reflux 05/01/23 11/09/23 History release aspirin 81 mg capsule 81 mg PO DAILY Heart Health 06/19/23 11/09/23 History cephalexin 250 mg capsule 250 mg PO BID #60 caps 09/26/23 11/09/23 Rx New Prescriptions to Start Prescriptions: Allergies Allergy/AdvReac Type Severity Reaction Status Date / Time No Known Allergies Allergy Verified 11/07/23 08:42 Exam Data for Last 24 hours Vital signs and Labs for Last 24 Hours: Temp Pulse Resp BP Pulse Ox O2 Del Method 98.8 F 78 18 127/76 98 Room Air 11/09/23 07:15 11/09/23 07:15 11/09/23 07:15 11/09/23 07:15 11/09/23 07:15 11/09/23 07:15 Laboratory Results - last 24 hr 11/09/23 05:54: Urine Color Yellow, Urine Appearance Clear, Urine pH 7.5, Ur Specific [place] 1.010, Urine Protein Negative, Urine Glucose (UA) Negative, Urine Ketones Negative, Urine Blood Negative, Urine Nitrate Negative, Urine Bilirubin Negative, Urine Urobilinogen 0.2, Ur Leukocyte Esterase 1+ A, Urine RBC 3-5, Urine WBC 5-10, Ur Squamous Epith Cells 20-50, Urine Bacteria 1+ 11/09/23 06:30: WBC 14.1 H, RBC 4.51, Hgb 13.1, Hct 40.3, MCV 89.3, MCH 28.9, MCHC 32.4, RDW 13.8, Plt Count 400, MPV 7.5, Neut % (Auto) 68.9, Lymph % (Auto) 23.6, Roosevelt % (Auto) 4.5, Eos % (Auto) 2.0, Baso % (Auto) 1.1, Neut # (Auto) 9.7 H, Lymph # (Auto) 3.3, Roosevelt # (Auto) 0.6, Eos # (Auto) 0.3, Baso # (Auto) 0.2, Sodium 135 L, Potassium 4.2, Chloride 108 H, Carbon Dioxide 20 L, Anion Gap 11.2, BUN 5 L, Creatinine 0.50 L, Estimated Creat Clear 124, Estimated GFR 150, Est GFR ( Amer) 182, Glucose 86, Calcium 9.3, Total Bilirubin 0.4, AST 19, ALT 16, Alkaline Phosphatase 228 H, Total Protein 7.2, Albumin 3.5, Globulin 3.7 H, Albumin/Globulin Ratio 0.9 L, Blood Type O Positive, Antibody Screen Negative I & O for Last 24 hours: Intake & Output 11/06/23 11/07/23 11/08/23 11/09/23 23:59 23:59 23:59 23:59 Weight 221 lb Narrative: General: patient is alert oriented in no acute distress and responds appropriately to questions. HEENT: NCAT, EOMI, moist mucous membranes, neck supple with full ROM Cardiovascular: RRR +S1/S2, no murmurs or rubs Pulmonary: Clear to auscultation bilaterally, nonlabored breathing, symmetric chest rise Abdominal: Gravid abdomen appropriate for gestation. No guarding, rebound, or tenderness noted. Extremities: trace edema, no tenderness or cyanosis noted Skin: Normal turgor, intact, warm. Negative for erythema, pallor, petechia, or lesions Neurologic: Negative for sensory or motor deficit Psychiatric: Normal affect, normal thought process, good judgment and insight, no depression or anxious mood appreciated. *Routine HEENT Exam Head: Present normocephalic and atraumatic Eye: Present EOMI, PERRL and normal accommodation; Absent conjunctival icterus, scleral injection, nystagmus or exophthalmos ENT: Present mucous membranes moist *Routine Respiratory Exam Respiratory: Present CTA bilaterally, normal respiratory effort, able to speak in complete sentences and symmetric chest movement; Absent accessory muscle use, decreased breath sounds, rales, respiratory distress, wheezes, distant breath sounds or diminished air movement *Routine Cardiovascular Exam Cardiovascular: Present RRR, Normal S1 and Normal S2; Absent murmur or gallop *Routine Abdominal Exam Abdominal: Present soft and normoactive bowel sounds; Absent tenderness, distended, rebound or guarding *Routine Rectal Exam Rectal:: deferred *Routine Genitalia Exam Genitalia:: normal female Assessment and Plan *Assessment and plan (1) IUGR (intrauterine growth restriction): Status: Acute Category: Medical (2) Rubella non-immune status, antepartum: Status: Acute Category: Medical Code(s): O09.899 - Supervision of other high risk pregnancies, unspecified trimester; Z28.39 - Other underimmunization status (3) Body mass index (BMI) of 40.1 to 44.9 in adult: Status: Acute Category: Medical Code(s): Z68.41 - Body mass index [BMI] 40.0-44.9, adult (4) Pyelonephritis: Status: Acute Category: Medical Code(s): N12 - Tubulo-interstitial nephritis, not specified as acute or chronic (5) 38 weeks gestation of : Status: Acute Category: Medical Code(s): Z3A.38 - 38 weeks gestation of Plan #38 weeks gestation - Monitor vitals - Admit to L&D for scheduled repeat delivery - External FHR and TOCO monitor - Blood type: O+ - Hemoglobin: 13.1, Plt: 400 - Plan for spinal anesthesia - Anticipate delivery of female : Yazan #IUGR -Diagnosed at 36 weeks gestation. Anterior placenta that has a lateral wrap grade 2-3. BPD: 5th percentile, head circumference: 3rd percentile, AC: 27th percentile, femur length: 10th percentile. EFW: 2599 g, 5 pounds 12 ounces, 16th percentile #Obesity -BMI: 41. Complicates all aspect of care. ?The [employer] has stated that weekly surveillance beginning at 34+0 weeks for those with prepregnancy BMI >=40 kg/m2 #Rubella nonimmune -Will addictions counselor assistant and vaccinate
[2023-11-09 13:00] LABS: Cord Blood PH 7.34 (7.35-7.45)
--- NOTE | 2023-11-09 13:52 | P.PNANES_ITS ---
[facility] Disclaimer: The information contained in this section may have been updated after the patient was seen, as this information can be updated by other users. Medical History Irregular bleeding PCOS (polycystic ovarian syndrome) Surgical History History of section Family History Mother Cancer breast, bone, brain Grandmother Cancer brain Social History Smoking Status: Current every day smoker tobacco type: cigarettes years smoked: 15 alcohol intake: former substance use type: denies use and marijuana current occupational status: unemployed Travel in the last 8 weeks: None [facility] Anesthesia Checklist Patient Identification Patient Identification: Arm Band Structural Data Admitted From: Home Planned Operative Procedure/s: Repeat C/S Consent for Planned Operative Procedure(s) Verified: Yes Verified Documents: Surgical Consent and History and Physical NPO Status Verified Time NPO: 06:30 Additional verifications Anesthesia Reactions: No Airway Assessment Mallampati Score:: Class II C-Spine Mobility Assessed: Yes TMJ Mobility Assessed: Yes Dentition: Good Dentition Neurological Assessment Level of Consciousness: Awake and Alert Anesthesia Plan Anesthesia Risk discussed: Yes Anesthesia Plan: Verified ASA Class: II Anesthesia Type: Spinal (with Bilateral TAP Block)
--- NOTE | 2023-11-09 13:53 | EXP.ANES.I ---
[facility] Anesthesia Record Part I Anesthesia Record I Intake, IV Amount: 2,000 Hydration: Adequate Estimated blood loss (mL): 300 Urine output (mL): 100 Blood Products used (#): none Blood Pressure: 107/51 SaO2: 100 Pulse Rate: 87 Airway Patency: Patent Respiratory Rate: 16 Temperature: 97.5 F Patient is:: Awake and Stable Stable to PACU at:: 13:40
--- NOTE | 2023-11-09 14:06 | EXP.DN ---
Delivery Note Delivery Date:: 11/09/23 Delivery Time:: 12:54 Anesthesia Type: Spinal (with Bilateral TAP Block) Was labor medically induced?: No Gestational age (weeks): 38 delivered prior to 39 weeks?: Yes Justification for early elective delivery:: IUGR Infant Gender: Female at 1 minute: 8 at 5 minutes: 9 Delivery Procedure:: Preoperative diagnosis: 1. in at 38 completed weeks gestation, vertex 2. Rh positive 3. Previous delivery, desires repeat 4. Intrauterine growth restriction 5. Obesity Postoperative diagnosis: 1. in at 38 completed weeks gestation, vertex 2. Rh positive 3. Previous delivery, desires repeat 4. Intrauterine growth restriction 5. Obesity Medications: 2 g of Ancef Findings: 1. Live viable female infant: Yazan. Weight: 6pounds 5ounces. Apgars 8 and 9 at 1 and 5 minutes respectively 2. Unable to completely visualize the ovaries and fallopian tubes secondary to adhesions Anesthesia: Spinal by Jose Cruz Saha Surgeon: Meghana Shipley DO Steam Tender: Aria Olivo DO EBL: 300mL Procedure: Repeat low transverse section Summary: Amada is a 27yo at 38w0d gestation based on LMP, confirmed with 11wk US. was complicated by IUGR, obesity, and pyelonephritis. She had a previous delivery and desired repeat . Procedure explained in its entirety. The patient was counseled on the risks and benefits of section including bleeding, vascular injury, infection, and injury to the surrounding structures. Hemorrhage requiring life saving blood transfusion resulting in blood born viral infection or allergic reaction was explained and the patient consented to blood transfusion. Possible need for further operative measures prolonging recovery time and hospitalization reviewed to include hysterectomy. Procedure explained in its entirety and patient had no further questions. Consented to procedure. The patient was taken back to the operating room where adequate spinal anesthesia was obtained. Pneumatic compression stockings applied to lower extremities. Ancef 2g was given for infection prophylaxis. She was placed in the dorsal supine position with a leftward tilt. Urinary catheter was placed and found to be draining clear urine. The patient was prepped and draped in sterile fashion. Anesthesia was tested and and found to be adequate. A Pfannenstiel skin incision was made with the scalpel. Subcutaneous bleeding vessels were cauterized with the bovie. There was a significant amount of scarring in the subcutaneous tissue. The incision was taken down to the fascia with the bovie. The fascia was knicked in the midline and extended laterally with Krause scissors. The superior aspect of the fascia was grasped with Simi clamps and the rectus muscle was taken down bluntly. The rectus muscle was sharply dissected from the midline with Mayos. This process was repeated inferiorly. There was significant scarring of the bladder to the inferior fascia. The rectus muscles were in the midline, peritoneum was identified and entered bluntly. Bladder blade was attempted to be placed however there were omental adhesions to the fundal wall of the uterus as well as bladder adhesions to the anterior uterine wall. These adhesions were carefully taken down. A window in the omentum was noted and 2 Kellys were used to clamp and suture ligate to divide the omentum and separate the adhesion. The bladder was carefully and sharply dissected from the anterior uterine wall. At this time after an extensive adhesiolysis an Pradeep O retractor was able to be placed. The lower uterine segment was identified but secondary to adhesions we had to go slightly superior. Hysterotomy was made and entered bluntly with the surgeon's index finger. Incision was then extended in a superior and inferior fashion by blunt separation. Membranes were ruptured revealing clear fluid. The fetus was in cephalic presentation. The head was carefully elevated out of the pelvis. Fundal pressure was applied when head was brought into incision. The infants head was delivered without difficulty. The shoulder and body followed without complication. The mouth and nose were suctioned with a bulb. The umbilical cord was clamped and cut. was taken to warmer for evaluation by industrial waste treatment technician, Dr. Grimes. Cord blood was collected. Arterial and venous cord gases were collected. The placenta was delivered via manual extraction and found to be normal and intact. Placenta will be sent for further evaluation secondary to IUGR. IV Pitocin was initiated. Inside of the uterus was gently cleared of blood and clots with lap sponge. The hysterotomy was closed with 0 Vicryl in a running locked fashion. Imbricating stitch then run with 0 Vicryl. There is a small amount of bleeding in the midline of the lower uterine segment which was made hemostatic with a single [id number] stitch. The lower uterine segment was visualized and noted to be hemostatic. The posterior aspect of the uterus was cleared of blood clot with a damp lap sponge. The gutters were inspected bilaterally and cleared of blood and clots with lap sponges. The uterine incision was reinspected and hemostasis noted. Gelfoam was placed over the hysterotomy closer for additional prophylaxis. The fascia was closed in a running nonlocked fashion using 0 Vicryl x 2 meeting just right of midline. Fascia was noted as not having gaps or defects. The subcutaneous fat was closed with 0 Monocryl. Skin was closed with INSORB stapler in a subcuticular fashion. Patient tolerated the procedure well. All counts were correct x3 per nursing. Patient was taken to OB PACU and was stable in recovery room.
[2023-11-09 14:10] LABS: Cocaine Screen,Urine Negative ng/ml (<300)
[2023-11-09 14:11] LABS: Methadone Screen,Urine Negative ng/ml (<300)
[2023-11-09 14:12] LABS: Phencyclidine Screen,Urine Negative ng/ml (<25)
[2023-11-09 14:13] LABS: Opiate Screen,Urine Negative ng/ml (<300)
[2023-11-09] MEDS: LACTATED RINGERS 1000ML 1,000 ML 125 ML IV (14:20)
[2023-11-09] MEDS: OXYTOCIN/RINGERS LACTATE 30 UNITS/500 ML BAG 40 UNITS IV (14:20)
[2023-11-09 14:52] LABS: Microscopic,Cath URINE MICROSCOPIC (MICROSCOPIC)
[2023-11-09 15:32] LABS: Appearance,Urine/Cath CLEAR (Clear); Bilirubin,Cath Negative (Negative); Blood, Urine/Cath Negative (Negative); Color,Urine/Cath YELLOW (Yellow); Glucose,Urine/Cath (UA) Negative (Negative); Ketones,Urine/Cath 1+ (Negative); Leukocyte Esterase,Cath Negative (Negative); Nitrate,Cath Negative (Negative); PH,Urine/Cath 8.5 (5.0-8.5); Protein,Urine/Cath Negative (Negative); Urobilinogen,Cath 0.2 EU/dl (0.2)
[2023-11-09 15:37] LABS: Barbiturates Screen,Urine Negative ng/ml (<200); Benzodiazepines Screen,Urine Negative ng/ml (<200)
[2023-11-09 15:39] LABS: Cannabinoid Screen,Urine Negative ng/ml (<50)
[2023-11-09 15:41] LABS: Amphetamine/Metha Screen,Urine Negative ng/ml (<1000)
--- NOTE | 2023-11-09 15:46 | SW/DCPLANNER ---
Addendum entered by Mila Remy 11/14/23 12:41: Infant cord screen is NEGATIVE: I have reported this to Tamalyce Turner. Addendum entered by Mila Remy 11/12/23 14:17: Tam Turner [phone] is here to speak w/ patient. Tam stated that she will need to review additional documentation then will follow up w/ OB staff tomorrow afternoon regarding appropriate discharge plans. Addendum entered by Mila Remy 11/12/23 09:31: 11/12/23: CPS worker w/ [facility] (Johnny) has called to speak w/ patient via phone. PER OB staff on 11/11/23 Spoke with Néstor from central intake at this time simon case, number [phone]. Will get someone to call today since is pending discharge today. Original Note: I received a referral for this patient regarding: drug use during . Patient urine drug screen was positive on the following dates: 05/01/23 for THC, 05/11/23 for opiates (not prescribed in [facility] system/pt stated that [facility]) and THC, 09/12/23 for THC. Patient was negative at admission 11/09/23. urine drug screen is still pending at this time. cord screen has been collected. Patient stated that last THC use was in Jul/Aug. Patient delivered female (Yazan Diamond) on 11/09/23. Per patient infant's father (Yfn Diamond 11/28/68) is involved w/ patient. Patient and will reside at [address] [place] [address] in [place] [address]. Patient's contact number is [phone]. Patient does have two other children (Nicolette 08/22/19 and Selma 04/28/21) whom are currently in foster care. 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 Patient stated that she recently moved to [place] and hopes to regain custody of her children soon. Patient is currently established w/ [facility]. PED MD will be Dr Grimes. Patient stated that she will have transportation to all follow up appointments. Patient has the following items at home: crib, carseat, clothing, diapers and plans to bottle feed. Patient is expected to discharge on Sunday11/11/23 pending no setbacks. Once urine drug screen results OB staff will report to Central Intake. OB staff will call me if they have any further questions/needs. If case is not accepted I will continue to follow up once infant cord screen is resulted.
[2023-11-09 15:50] LABS: Squamous Epithelial Ur./Cath Occasional #/hpf (0-5)
[2023-11-09] MEDS: OXYCODONE 5MG IMMEDIATE RELEASE TABLET 10 MG PO (15:50)
[2023-11-09] MEDS: PRENATAL MULTIVITAMIN W/IRON 1 EACH PO (17:22)
[2023-11-09] MEDS: HYDROMORPHONE 2MG/ML SYRINGE 1 MG IV (17:22)
[2023-11-09] MEDS: ACETAMINOPHEN 500MG TAB 1000 MG PO (20:51)
[2023-11-09] MEDS: SODIUM CHLORIDE 0.9% 10ML FLUSH SYRINGE 10 ML IV (20:51)
[2023-11-09] MEDS: KETOROLAC 30MG/ML VIAL 30 MG IV (20:51)
[2023-11-09] MEDS: PANTOPRAZOLE 40MG TABLET 40 MG PO (21:37)
[2023-11-10] MEDS: KETOROLAC 30MG/ML VIAL 30 MG IV ×3 (02:16→15:45)
[2023-11-10] MEDS: ACETAMINOPHEN 500MG TAB 1000 MG PO ×4 (02:16→21:15)
[2023-11-10 08:00] VITALS: BP 107/47; PULSE 86; RESP 20; TEMP 36.6; O2SAT 97
[2023-11-10 08:46] LABS: Basophils % 0.2 % (0.1-2.0); Eosinophils # 0.1 K/mm3 (0.0-0.4); Eosinophils % 1.1 % (0.1-12.0); Hematocrit 33.1 % (37.0-47.0); Hemoglobin 10.8 g/dL (12.2-16.2); Lymphocytes # 2.1 K/mm3 (0.7-4.5); Lymphocytes % 16.6 % (10-50); Mean Corpuscular HGB Conc 32.6 g/dL (31.8-35.4); Mean Corpuscular Hemoglobin 29.2 pg (27.0-31.2); Mean Corpuscular Volume 89.6 fl (81-99); Mean Platelet Volume 7.4 fl (7.4-10.4); Monocytes # 0.6 K/mm3 (0.1-1.0); Monocytes % 4.9 % (1.7-9.3); Neutrophils # 9.8 K/mm3 (1.8-7.8); Neutrophils % 77.2 % (37.0-80.0); Platelet Count 331 K/mm3 (142-424); Red Blood Count 3.69 M/mm3 (4.20-5.40); White Blood Count 12.7 K/mm3 (4.8-10.8)
--- NOTE | 2023-11-10 12:16 | EXP.ACUTE.PN ---
Subjective *Date: 11/10/23 *Time: 12:16 Interval history: POD # 2 s/p RLTCS Resting comfortably in bed this morning. Pain controlled. Lochia approriate. Pumping and bottle feeding. Voiding without difficulty and passing flatus. Tolerating regular diet. Denies fever/chills, chest pain and shortness of breath. No headaches, vision changes, lightheadedness/dizziness. Ambulating well ad manpreet. Medical Exam Vital signs and Labs for Last 24 Hours: Vital Signs Temp Pulse Pulse Pulse Resp BP BP 11/10/23 08:00 97.9 F 86 20 107/47 L 11/09/23 16:05 98.0 F 89 18 120/53 L 11/09/23 15:50 85 16 119/64 11/09/23 15:35 87 17 120/73 11/09/23 15:20 81 18 116/49 L 11/09/23 15:05 73 17 119/73 11/09/23 14:50 98.5 F 71 16 125/52 L 11/09/23 14:35 75 16 113/67 11/09/23 14:20 98.3 F 72 17 125/69 11/09/23 14:10 61 16 125/69 11/09/23 14:00 71 16 121/70 11/09/23 13:50 86 16 113/81 11/09/23 13:40 97.5 F L 57 L 16 107/57 L 11/09/23 13:54 97.5 F L 87 16 107/51 L Pulse Ox O2 Del Method 11/10/23 08:00 97 Room Air 11/09/23 16:05 96 Room Air 11/09/23 15:50 96 Room Air 11/09/23 15:35 98 Room Air 11/09/23 15:20 98 Room Air 11/09/23 15:05 98 Room Air 11/09/23 14:50 98 Room Air 11/09/23 14:35 99 Room Air 11/09/23 14:20 100 Room Air 11/09/23 14:10 100 Room Air 11/09/23 14:00 100 Room Air 11/09/23 13:50 100 Room Air 11/09/23 13:40 100 Room Air 11/09/23 13:54 Intake and Output 11/09/23 11/10/23 11/10/23 23:59 07:59 15:59 Output Total 300 / 300 350 / 350 Balance -300 / 1700 -350 / -350 Output: Output, Urine Amount 300 / 300 350 / 350 Laboratory Results - last 24 hr 11/09/23 05:54: Urine Opiates Screen Negative, Urine Methadone Screen Negative, Ur Barbituates Screen Negative, Ur Phencyclidine Scrn Negative, Ur Amphetamines Screen Negative, U Benzodiazepines Scrn Negative, Urine Cocaine Screen Negative, U Marijuana (THC) Screen Negative 11/09/23 06:30: Blood Type O Positive, Antibody Screen Negative, Crossmatch (AHG) See Detail 11/09/23 12:15: Urine Color Yellow, Urine Appearance Clear, Urine pH 8.5, Ur Specific [place] 1.010, Urine Protein Negative, Urine Glucose (UA) Negative, Urine Ketones 1+, Urine Blood Negative, Urine Nitrate Negative, Urine Bilirubin Negative, Urine Urobilinogen 0.2, Ur Leukocyte Esterase Negative, Urine RBC None, Urine WBC None, Ur Squamous Epith Cells Occasional, Urine Bacteria None 11/09/23 12:58: Cord ABG pH 7.34 L 11/10/23 07:39: WBC 12.7 H, RBC 3.69 L, Hgb 10.8 L, Hct 33.1 L, MCV 89.6, MCH 29.2, MCHC 32.6, RDW 14.0, Plt Count 331, MPV 7.4, Neut % (Auto) 77.2, Lymph % (Auto) 16.6, [place] % (Auto) 4.9, Eos % (Auto) 1.1, Baso % (Auto) 0.2, Neut # (Auto) 9.8 H, Lymph # (Auto) 2.1, [place] # (Auto) 0.6, Eos # (Auto) 0.1, Baso # (Auto) 0.0 I & O for Labs for Last 24 Hours: Intake & Output 11/07/23 11/08/23 11/09/23 11/10/23 23:59 23:59 23:59 23:59 Intake Total 1999 Output Total 300 / 300 350 / 350 Balance 1700 / 1700 -350 / -350 Weight 221 lb Head: Present atraumatic and normocephalic ENT: Present mucous membranes moist Neck: Present full ROM Respiratory: Present CTA bilaterally and normal respiratory effort Cardiac: Present Reg Rate and Rhythm GI: Present soft and normal bowel sounds; Absent distention or tenderness Comments:: Uterine fundus firm and below umbilicus, pfannenstiel incision clean/dry/intact with steri strips in place Rectal (female): Present deferred (female): Present deferred Extremities: Present full ROM and calf tenderness; Absent edema Neuro: Present alert, awake and moves all extremities Assessment and Plan *Assessment and plan (1) S/P repeat low transverse : Status: Acute Category: Surgical Code(s): Z98.891 - History of uterine scar from previous surgery (2) 38 weeks gestation of : Status: Acute Category: Medical Code(s): Z3A.38 - 38 weeks gestation of (3) IUGR (intrauterine growth restriction): Status: Acute Category: Medical (4) Rubella non-immune status, antepartum: Status: Acute Category: Medical Code(s): O09.899 - Supervision of other high risk pregnancies, unspecified trimester; Z28.39 - Other underimmunization status (5) Tobacco smoking affecting : Status: Acute Qualifiers: Trimester: unspecified trimester Qualified Code(s): O99.330 - Smoking (tobacco) complicating , unspecified trimester Category: Medical Code(s): O99.330 - Smoking (tobacco) complicating , unspecified trimester (6) Acute blood loss anemia: Status: Acute Category: Medical Code(s): D62 - Acute posthemorrhagic anemia Plan Continue routine care Encouraged increased ambulation MMR before discharge Plan d/c home POD # 2
[2023-11-10] MEDS: PRENATAL MULTIVITAMIN W/IRON 1 EACH PO (15:46)
[2023-11-10 16:15] VITALS: BP 125/78; PULSE 79; RESP 18; TEMP 36.6; O2SAT 99
[2023-11-10] MEDS: PANTOPRAZOLE 40MG TABLET 40 MG PO (21:16)
[2023-11-10] MEDS: OXYCODONE 5MG IMMEDIATE RELEASE TABLET 5 MG PO (21:16)
[2023-11-10 22:15] VITALS: BP 121/69; PULSE 84; RESP 18; TEMP 36.6; O2SAT 96
[2023-11-11] MEDS: IBUPROFEN 400 MG TABLET 800 MG PO ×2 (00:44→14:24)
[2023-11-11] MEDS: ACETAMINOPHEN 500MG TAB 1000 MG PO ×2 (04:02→14:24)
[2023-11-11 04:12] VITALS: BP 119/72; PULSE 89; RESP 18; TEMP 36.7; O2SAT 98
--- NOTE | 2023-11-11 06:47 | PC.NURSE ---
Spoke with Néstor from central intake at this time reguarding case, number [phone]. Will get someone to call today since infant is pending discharge today.
--- NOTE | 2023-11-11 08:33 | P.DS_ITS ---
General Admission date:: 11/09/23 Discharge date: 11/11/23 HPI HPI HPI: POD # 2 s/p RLTCS Resting comfortably in bed. Pain controlled. Light lochia. Formula feeding. Voiding without difficulty and passing flatus. Tolerating regular diet. Denies fever/chills, chest pain and shortness of breath. No headaches, vision changes, lightheadedness/dizziness. Ambulating well ad manpreet. Hospital Course Hospital Course Hospital Course: Ms Amada Brizuela is a 27yo at 38w0d gestation based on LMP, confirmed with 11wk US, who presented to [facility] L[facility]D for scheduled repeat . was complicated by IUGR, obesity, and pyelonephritis. OB ultrasound at 36 weeks and 5 days gestation for SGA -Viable fetus in cephalic presentation with an anterior placenta that has a lateral wrap grade 2-3. BPD: 5th percentile, head circumference: 3rd percentile, AC: 27th percentile, femur length: 10th percentile. -CAMERON: 13.95 cm, MVP: 4.03 cm -Cervix is 3.24 cm -EFW: 2599 g, 5 pounds 12 ounces, 16th percentile She underwent a repeat on 11/09/23. She delivered a live female baby, Yazan, weighing 6 lbs 5 oz. Apgars 8 (1 min), 9 (5 min). EBL 300. She did well . Pain controlled. Formula feeding. Light lochia. Voiding without difficulty and passing flatus. Tolerating regular diet. Denies fever/chills, chest pain and shortness of breath. No headaches, dizziness/lightheadedness or vision changes. Vital signs stable, afebrile. Heart regular rate and rhythm. Lungs clear to auscultation. Abdomen soft, nontender. No lower extremity swelling. Ambulating well ad manpreet. Normal hospital course. She was discharged to home on POD # 2 with instructions to follow-up in the office in 2 weeks or sooner if needed. Exam Data for Last 24 hours Vital signs and Labs for Last 24 Hours: Temp Pulse Resp BP Pulse Ox O2 Del Method 98.1 F 89 18 119/72 98 Room Air 11/11/23 04:12 11/11/23 04:12 11/11/23 04:12 11/11/23 04:12 11/11/23 04:12 11/11/23 04:12 Laboratory Results - last 24 hr 11/10/23 07:39: WBC 12.7 H, RBC 3.69 L, Hgb 10.8 L, Hct 33.1 L, MCV 89.6, MCH 29.2, MCHC 32.6, RDW 14.0, Plt Count 331, MPV 7.4, Neut % (Auto) 77.2, Lymph % (Auto) 16.6, [place] % (Auto) 4.9, Eos % (Auto) 1.1, Baso % (Auto) 0.2, Neut # (Auto) 9.8 H, Lymph # (Auto) 2.1, [place] # (Auto) 0.6, Eos # (Auto) 0.1, Baso # (Auto) 0.0 I & O for Last 24 hours: Intake & Output 11/08/23 11/09/23 11/10/23 11/11/23 23:59 23:59 23:59 23:59 Intake Total 1999 / 1999 Output Total 300 / 300 350 / 350 Balance 1700 / 1700 -350 / -350 Weight 221 lb Constitutional Constitutional: no acute distress and cooperative *Routine HEENT Exam Head: Present normocephalic and atraumatic Eye: Absent conjunctivae pink ENT: Present mucous membranes moist *Routine Neck Exam Neck: Present full ROM *Routine Respiratory Exam Respiratory: Present CTA bilaterally and normal respiratory effort *Routine Cardiovascular Exam Cardiovascular: Present RRR *Routine Abdominal Exam Abdominal: Present soft and normoactive bowel sounds; Absent tenderness or distended Comments: Pfannenstiel incision clean/dry/intact with steri strips in place *Routine Rectal Exam Patient deferred: visual exam *Routine Exam Patient deferred: external exam *Routine Extremities Exam Extremities: Present full ROM; Absent edema or calf tenderness *Routine Neurological Exam Neurological: Present alert, moving all extremities and normal speech Routine Psychiatric Exam Psychiatric: Present normal affect and cooperative Results Data Completed and Pending Labs on day of discharge: Labs from last 24 hours 11/10/23 07:39 WBC 12.7 H RBC 3.69 L Hgb 10.8 L Hct 33.1 L MCV 89.6 MCH 29.2 MCHC 32.6 RDW 14.0 Plt Count 331 MPV 7.4 Neut % (Auto) 77.2 Lymph % (Auto) 16.6 [place] % (Auto) 4.9 Eos % (Auto) 1.1 Baso % (Auto) 0.2 Neut # (Auto) 9.8 H Lymph # (Auto) 2.1 [place] # (Auto) 0.6 Eos # (Auto) 0.1 Baso # (Auto) 0.0 DS: Diagnosis Discharge Diagnosis (1) S/P repeat low transverse : Status: Acute Code(s): Z98.891 - History of uterine scar from previous surgery (2) 38 weeks gestation of : Status: Acute Code(s): Z3A.38 - 38 weeks gestation of (3) IUGR (intrauterine growth restriction): Status: Acute (4) Rubella non-immune status, antepartum: Status: Acute Code(s): O09.899 - Supervision of other high risk pregnancies, unspecified trimester; Z28.39 - Other underimmunization status (5) Tobacco smoking affecting : Status: Acute Code(s): O99.330 - Smoking (tobacco) complicating , unspecified trimester Qualifiers: Trimester: unspecified trimester Qualified Code(s): O99.330 - Smoking (tobacco) complicating , unspecified trimester (6) Acute blood loss anemia: Status: Acute Code(s): D62 - Acute posthemorrhagic anemia Meds Home Medications and Allergies Home Medications Medication Instructions Recorded Confirmed Type omeprazole 20 mg capsule,delayed 20 mg PO DAILY Acid Reflux 05/01/23 11/09/23 History release aspirin 81 mg capsule 81 mg PO DAILY Heart Health 06/19/23 11/09/23 History cephalexin 250 mg capsule 250 mg PO BID #60 caps 09/26/23 11/09/23 Rx ibuprofen 800 mg tablet 800 mg PO Q8H PRN pain #20 tabs 11/11/23 Rx oxycodone 5 mg tablet 5 mg PO Q4HP PRN Moderate Pain 11/11/23 Rx (4-6) #20 tabs New Prescriptions to Start Prescriptions: ibuprofen GeovaniAria oxycodone Aria Olivo Allergies Allergy/AdvReac Type Severity Reaction Status Date / Time No Known Allergies Allergy Verified 11/07/23 08:42 Discharge Plan Disposition Patient Disposition: Home, Self-Care Condition: Good Discharge Order Discharge Orders: Discharge Order (Routine); Ordered 11/11/23 Ordered By: Aria Olivo Follow up Plan Follow up with: Meghana Shipley DO [Staff Physician] - 2 weeks Aria Olivo DO [Staff Physician] - Enter time for follow up Prescriptions/Medication Reconciliation: New oxycodone 5 mg Tablet 5 mg PO Q4HP PRN (Reason: Moderate Pain (4-6)) Qty: 20 0RF ibuprofen 800 mg tablet 800 mg PO Q8H PRN (Reason: pain) Qty: 20 0RF Continued cephalexin 250 mg capsule 250 mg PO BID Qty: 60 3RF Rx Instructions: take 1 capsule daily, for 20 weeks omeprazole 20 mg capsule,delayed release(DR/EC) 20 mg PO DAILY aspirin 81 mg Capsule 81 mg PO DAILY Problem Reconciliation Problems Reviewed?: Yes Patient Discharge Instructions ACTIVITY: Limited activity DIET: continue same diet and regular diet Additional Instructions: Discharge: 1. Take 800 mg Ibuprofen every 8 hours as needed for pain. You can also take 500-1000 mg of Tylenol in between doses, every 6-8 hours. If pain persists you can take Oxycodone 5 mg, 1 tablet every 4-6 hours or more as needed. 2. Nothing in the vagina for 6 weeks - no intercourse, douching or tampons. No tub baths/hot tubs or swimming pools - Drink plenty of fluids. - No strenuous activity or driving until released by your doctor. - Don't lift anything heavier than your . 3. Reasons to return to L&D or call On-Call doctor - fever (greater than 100.4) - heavy vaginal bleeding (soaking through 1 pad in less than 2 hours) - vaginal discharge (malodorous and/or purulent) - severe headaches not resolved by medication or rest and leg tenderness/edema 4. depression/blues - Normal to feel anxious/overwhelmed for first 2 weeks - Talk to your doctor if: severe anxiety, trouble bonding with baby, withdrawing from other family members, thoughts of harming yourself or others Providers Primary Care Provider: Provider,Referral Admit Provider: Meghana Shipley Attending Provider: Meghana Shipley
[2023-11-11] MEDS: OXYCODONE 5MG IMMEDIATE RELEASE TABLET 5 MG PO (14:24)
[2023-11-11] MEDS: MEASLES,MUMPS,RUBELLA VACCINE VIAL 0.5 ML SQ (15:54)
--- NOTE | 2023-11-19 17:02 | EXP.ANES.II ---
[facility] Anesthesia Record Part II Anesthesia Record Part II Discharge Time: 14:10 Destination: Obstetric PACU nurse assessment reviewed?: Yes Patient Condition:: Good Anesthesia Complications:: None Swallowing reflex intact?: Yes Airway Patency: Patent Cyanosis?: No Blood Pressure: 125/69 SaO2: 100 Respiratory Rate: 16 Pulse Rate: 61 Temperature: 98.3 F Mental Status: Alert & Oriented Pain level:: 0 Nausea and/or vomitting:: None Intake, IV Amount: 0 Hydration: Adequate
[2023-11-19 17:03] VITALS: BP 125/69; PULSE 61; RESP 16; TEMP 36.8; O2SAT 100
== END 2023-11-11 16:02 | disposition home or self-care (01) | DRG 788 ==
PROVIDERS: Admitting Provider Obstetrics & Gynecology; Visit Provider Obstetrics & Gynecology
PROC: 10D00Z1 Extraction of Products of Conception, Low, Open Approach (ICD-10-PCS; CPT 59514; principal; 2023-11-09 07:30)
DX: O99.214 Obesity complicating childbirth (principal); Z37.0 Single live birth; O34.211 Maternal care for low transverse scar from previous cesarean delivery; Z3A.38 38 weeks gestation of pregnancy; O36.5930 Maternal care for other known or suspected poor fetal growth, third trimester, not applicable or unspecified; F17.200 Nicotine dependence, unspecified, uncomplicated; O99.334 Smoking (tobacco) complicating childbirth
CPT/HCPCS: 59514; 36415; 59025; 80053; 80307; 81001; 82800; 85025; 86850; 87086; 90707; 94761; 96374; C9290; G0283; J2405